=== PATIENT | female | born 1990 | race Caucasian/White ===

== ENCOUNTER → 2016-06-16 | Outpatient (CLI) | payer OTHER | LOC: MRI 09:00 | DX: R56.9 Unspecified convulsions (principal) | CPT/HCPCS: 70551 ==

== ENCOUNTER 2020-12-06 11:15 | Emergency (ER) | payer OTHER ==
[2020-12-06 12:22] LABS: HEMOGLOBIN 14.3 gm/dl (12.3-15.3); RED BLOOD COUNT 4.59 M/UL (4.00-5.10); WHITE BLOOD COUNT 17.4 K/UL (4.5-11.0)
[2020-12-06 12:46] LABS: BUN/CREATININE RATIO 30 (0-10)
[2020-12-06] MEDS ORDERED: KEPPRA750 MG PO (14:41)
== END 2020-12-06 16:30 | disposition home or self-care (01) ==
LOC: ER1 11:15
PROVIDERS: Physician Assistant
DX: R56.9 Unspecified convulsions (principal); J45.909 Unspecified asthma, uncomplicated
CPT/HCPCS: 70450; 71045; 73502; 73552; 73562; 80053; 81001; 82550; 82553; 83605; 83735; 83874; 84484; 84703; 85025; 87086; 96374; 99284; J1953; J7030